=== PATIENT | female | born 1995 | race Caucasian/White ===

== ENCOUNTER 2017-05-16 17:44 | Emergency (ER) | payer OTHER ==
[~2017-05-16] VITALS: Ht 165.1 cm; Wt 136.1 kg
[~2017-05-16 17:44] MED LIST: Mupirocin22 GM TOP; Prednisone20 MG PO
== END 2017-05-16 19:58 | disposition left against medical advice (07) ==
LOC: ER 17:44
DX: Z53.21 Procedure and treatment not carried out due to patient leaving prior to being seen by health care provider (principal)
CPT/HCPCS: 76830; 76856; 99283

== ENCOUNTER 2017-06-06 13:38 | Emergency (ER) | payer OTHER ==
[~2017-06-06] VITALS: Ht 165.1 cm; Wt 117.9 kg
[2017-06-06 14:14] LABS: Source, Urine Clean Catch
[2017-06-06 14:17] LABS: Appearance, Urine Hazy (Clear); Bilirubin, Urine Neg (Neg); Blood, Urine 4+ (Neg); Color, Urine Yellow (P-Yellow); Glucose Qualitative, Urine Neg (Neg); Ketones, Urine Neg (Neg); Leukocyte Esterase, Urine 1+ (Neg); Nitrite, Urine Neg (Neg); Protein, Urine 3+ (Neg); Specific Gravity, Urine 1.015 (1.003-1.022); Urobilinogen, Urine NORM (Normal)
[2017-06-06 14:28] LABS: Bacteria Few /hpf; Red Blood Cells, Urine 25-50 /hpf (0-2); Squamous Epithelial Cells Few /hpf (Few)
[2017-06-06] MEDS ORDERED: CEPH500 PO (14:32)
== END 2017-06-06 14:43 | disposition home or self-care (01) ==
LOC: ER 13:38
PROVIDERS: Physician Assistant
DX: N39.0 Urinary tract infection, site not specified (principal); Z79.52 Long term (current) use of systemic steroids; Z79.899 Other long term (current) drug therapy; F17.200 Nicotine dependence, unspecified, uncomplicated
CPT/HCPCS: 81001; 81025; 87086; 99283

== ENCOUNTER 2020-09-10 20:03 | Emergency (ER) | payer OTHER ==
[~2020-09-10] VITALS: Ht 165.1 cm; Wt 127.0 kg
[~2020-09-10 20:03] MED LIST changes: +CEPH500 PO
== END 2020-09-10 20:31 | disposition home or self-care (01) ==
LOC: ER 20:03
DX: S61.211A Laceration without foreign body of left index finger without damage to nail, initial encounter (principal); F17.200 Nicotine dependence, unspecified, uncomplicated; Z79.52 Long term (current) use of systemic steroids; W26.0XXA Contact with knife, initial encounter; Y93.G1 Activity, food preparation and clean up
CPT/HCPCS: 99282

== ENCOUNTER 2021-12-17 02:11 | Emergency (ER) | payer OTHER ==
[~2021-12-17] VITALS: Ht 165.1 cm; Wt 108.9 kg
[2021-12-17] MEDS ORDERED: PSEUDOEPHEDRINE30 M1 PO (02:41)
== END 2021-12-17 02:54 | disposition home or self-care (01) ==
LOC: ER 02:11
DX: H92.02 Otalgia, left ear (principal); J06.9 Acute upper respiratory infection, unspecified; F17.290 Nicotine dependence, other tobacco product, uncomplicated
CPT/HCPCS: A9270

== ENCOUNTER → 2022-08-15 | Outpatient (CLI) | payer OTHER ==
[~2022-08-15] MED LIST changes: +PSEUDOEPHEDRINE30 M1 PO
[2022-08-15 14:48] LABS: Protein/Creat Ratio, Ur Random 0.1
== END | disposition home or self-care (01) ==
LOC: LAB SHORT 11:49 → LAB 11:49
PROVIDERS: Obstetrics & Gynecology
DX: R03.0 Elevated blood-pressure reading, without diagnosis of hypertension (principal)
CPT/HCPCS: 82570; 84156

== ENCOUNTER 2022-08-29 16:30 | Observation (INO) | payer OTHER ==
[~2022-08-29] VITALS: Ht 165.1 cm; Wt 146.0 kg
[2022-08-29] VITALS (15 sets, daily range): BP systolic 137–170; BP diastolic 75–90
[2022-08-29 17:21] LABS: BASOPHILS ABSOLUTE AUTO 0.04 K/mm3 (0.00-0.23); BASOPHILS PERCENT AUTO 1 % (0-2); EOSINOPHILS ABSOLUTE AUTO 0.07 K/mm3 (0.00-0.68); EOSINOPHILS PERCENT AUTO 1 % (0-6); Hemoglobin 10.7 g/dL (11.5-16.0); IMMATURE GRAN ABSOLUTE AUTO 0.06 K/mm3 (0.00-0.10); IMMATURE GRAN PERCENT AUTO 1 % (0-1); LYMPHOCYTES ABSOLUTE AUTO 1.86 K/mm3 (0.84-5.20); LYMPHOCYTES PERCENT AUTO 25 % (21-46); MONOCYTES PERCENT AUTO 7 % (4-13); Mean Corpuscular HGB Conc 31.5 g/dL (31.5-36.5); Mean Corpuscular Volume 89 fL (80-100); Mean Platelet Volume 12.5 fL (9.1-12.4); NEUTROPHILS ABSOLUTE AUTO 4.97 K/mm3 (1.96-9.15); NEUTROPHILS PERCENT AUTO 66 % (41-73); Platelet Count 163 K/mm3 (150-400); RDW Coefficient Variation 18.6 % (11.7-14.2); RDW Standard Deviation 59.7 fL (35.1-46.3); Red Blood Cell Count 3.82 M/mm3 (3.80-5.20)
[2022-08-29 17:48] LABS: Creatinine, Urine Random 90.8 mg/dL (27.00-270.00); Protein, Urine Random 12.8 mg/dL (0.0-11.9); Protein/Creat Ratio, Ur Random 0.1
[2022-08-29 19:07] LABS: Lactate Dehydrogenase (Ld),Bld 214 U/L (100-240); Uric Acid, Blood 4.2 mg/dL (2.6-6.0)
[2022-08-29 19:08] LABS: Alanine Aminotransfer (ALT/SGP 15 U/L (12-78); Albumin, Blood 2.6 g/dL (3.4-5.0); Albumin/Globulin Ratio 0.8 (0.8-1.8); Alk Phos 82 U/L (50-136); Anion Gap 6 mmol/L (6-16); Aspartate Aminotrans (AST/SGOT 10 U/L (12-37); Bilirubin, Total <0.1 mg/dL (0.1-1.0); Blood Urea Nitrogen 8 mg/dL (8-24); Bun/Creatinine Ratio 17.5 (12.0-20.0); CO2, Blood 22 mmol/L (21-32); Calcium, Blood 8.9 mg/dL (8.5-10.1); Chloride, Blood 110 mmol/L (98-108); Creatinine, Blood 0.46 mg/dL (0.40-1.00); Globulin, Blood 3.2 g/dL (2.2-4.0); Glomerular Filtration Rate 134 (60-); Glucose, Blood 88 mg/dL (70-99); Potassium, Blood 3.9 mmol/L (3.5-5.5); Sodium, Blood 138 mmol/L (136-145); Total Protein, Blood 5.8 g/dL (6.4-8.2)
[2022-08-29] MEDS ORDERED: PRENATAL 19 TA1 EAC3 PO (20:45)
[2022-08-29] MEDS ORDERED: Aspir 8181 MG (20:45)
[2022-08-30] VITALS (8 sets, daily range): BP systolic 126–161; BP diastolic 68–95
--- NOTE | 2022-08-30 07:39 | NUR ---
BP RETAKEN, PT HAD LEGS CROSSED AND CURLED AT 0738
== END 2022-08-30 13:00 | disposition home or self-care (01) ==
LOC: BC 16:30 → OBS 16:30 → BC 19:10
PROVIDERS: ADMIT Obstetrics & Gynecology
DX: O13.3 Gestational [pregnancy-induced] hypertension without significant proteinuria, third trimester (principal); Z3A.34 34 weeks gestation of pregnancy; O99.323 Drug use complicating pregnancy, third trimester; F12.90 Cannabis use, unspecified, uncomplicated; O99.343 Other mental disorders complicating pregnancy, third trimester; O99.013 Anemia complicating pregnancy, third trimester; Z87.891 Personal history of nicotine dependence; Z79.899 Other long term (current) drug therapy; Z79.82 Long term (current) use of aspirin
CPT/HCPCS: 36415; 80053; 82570; 83615; 84156; 84550; 85025; 87081; 87150; A9270

== ENCOUNTER 2022-09-15 09:28 | Inpatient (IN) | payer OTHER ==
[~2022-09-15] VITALS: Ht 165.1 cm; Wt 151.3 kg
[2022-09-15] VITALS (41 sets, daily range): BP systolic 114–177; BP diastolic 59–126
[~2022-09-15 09:28] MED LIST changes: +Aspir 8181 MG; +PRENATAL 19 TA1 EAC3 PO
[2022-09-15 09:57] LABS: BASOPHILS ABSOLUTE AUTO 0.04 K/mm3 (0.00-0.23); BASOPHILS PERCENT AUTO 1 % (0-2); EOSINOPHILS ABSOLUTE AUTO 0.11 K/mm3 (0.00-0.68); EOSINOPHILS PERCENT AUTO 1 % (0-6); Hematocrit 33.9 % (33.0-51.0); Hemoglobin 11.1 g/dL (11.5-16.0); IMMATURE GRAN ABSOLUTE AUTO 0.06 K/mm3 (0.00-0.10); IMMATURE GRAN PERCENT AUTO 1 % (0-1); LYMPHOCYTES PERCENT AUTO 20 % (21-46); MONOCYTES PERCENT AUTO 6 % (4-13); Mean Corpuscular HGB 28.9 pg (26.0-34.0); Mean Corpuscular HGB Conc 32.7 g/dL (31.5-36.5); Mean Corpuscular Volume 88 fL (80-100); Mean Platelet Volume 12.3 fL (9.1-12.4); NEUTROPHILS ABSOLUTE AUTO 5.84 K/mm3 (1.96-9.15); NEUTROPHILS PERCENT AUTO 72 % (41-73); Platelet Count 159 K/mm3 (150-400); RDW Coefficient Variation 17.5 % (11.7-14.2); RDW Standard Deviation 56.5 fL (35.1-46.3); Red Blood Cell Count 3.84 M/mm3 (3.80-5.20); White Blood Cell Count 8.15 K/mm3 (4.00-11.30)
[2022-09-15 10:40] LABS: Alanine Aminotransfer (ALT/SGP 23 U/L (12-78); Albumin, Blood 2.4 g/dL (3.4-5.0); Albumin/Globulin Ratio 0.7 (0.8-1.8); Alk Phos 99 U/L (50-136); Anion Gap 6 mmol/L (6-16); Aspartate Aminotrans (AST/SGOT 21 U/L (12-37); Bilirubin, Total <0.1 mg/dL (0.1-1.0); Blood Urea Nitrogen 13 mg/dL (8-24); Bun/Creatinine Ratio 25.3 (12.0-20.0); CO2, Blood 23 mmol/L (21-32); Calcium, Blood 8.9 mg/dL (8.5-10.1); Chloride, Blood 111 mmol/L (98-108); Creatinine, Blood 0.51 mg/dL (0.40-1.00); Globulin, Blood 3.3 g/dL (2.2-4.0); Glomerular Filtration Rate 130 (60-); Glucose, Blood 113 mg/dL (70-99); Sodium, Blood 140 mmol/L (136-145); Total Protein, Blood 5.7 g/dL (6.4-8.2)
[2022-09-15 11:08] LABS: Protein, Urine Random 146.5 mg/dL (0.0-11.9); Protein/Creat Ratio, Ur Random 0.5
[2022-09-15] MEDS ORDERED: ADALAT CC90 M1 PO (12:35)
[2022-09-15] MEDS ORDERED: PRENATAL TABLE1 EAC2 PO (12:35)
--- NOTE | 2022-09-15 14:28 | NUR ---
DR VELÁZQUEZ CALLED AND BP DISCUSSED. PLAN TO START MAGNEUM SULFATE NOW AND PLAN FOR CYTOTEC INDUCTION OF LABOR.
[2022-09-16] VITALS (50 sets, daily range): BP systolic 114–182; BP diastolic 56–101
[2022-09-17] VITALS (41 sets, daily range): BP systolic 110–153; BP diastolic 57–100
[2022-09-17 08:51] LABS: BASOPHILS ABSOLUTE AUTO 0.02 K/mm3 (0.00-0.23); BASOPHILS PERCENT AUTO 0 % (0-2); EOSINOPHILS PERCENT AUTO 0 % (0-6); Hematocrit 34.8 % (33.0-51.0); Hemoglobin 11.5 g/dL (11.5-16.0); IMMATURE GRAN ABSOLUTE AUTO 0.15 K/mm3 (0.00-0.10); IMMATURE GRAN PERCENT AUTO 1 % (0-1); LYMPHOCYTES ABSOLUTE AUTO 1.08 K/mm3 (0.84-5.20); LYMPHOCYTES PERCENT AUTO 10 % (21-46); MONOCYTES PERCENT AUTO 4 % (4-13); Mean Corpuscular HGB 28.7 pg (26.0-34.0); Mean Corpuscular Volume 87 fL (80-100); Mean Platelet Volume 12.2 fL (9.1-12.4); NEUTROPHILS ABSOLUTE AUTO 8.99 K/mm3 (1.96-9.15); NEUTROPHILS PERCENT AUTO 84 % (41-73); Platelet Count 189 K/mm3 (150-400); RDW Coefficient Variation 18.2 % (11.7-14.2); RDW Standard Deviation 57.7 fL (35.1-46.3); Red Blood Cell Count 4.01 M/mm3 (3.80-5.20); White Blood Cell Count 10.64 K/mm3 (4.00-11.30)
[2022-09-17 09:12] LABS: Albumin, Blood 2.7 g/dL (3.4-5.0); Albumin/Globulin Ratio 0.8 (0.8-1.8); Bilirubin, Total 0.2 mg/dL (0.1-1.0); Bun/Creatinine Ratio 15.7 (12.0-20.0); Calcium, Blood 7.9 mg/dL (8.5-10.1); Creatinine, Blood 0.51 mg/dL (0.40-1.00); Globulin, Blood 3.4 g/dL (2.2-4.0); Potassium, Blood 4.1 mmol/L (3.5-5.5); Total Protein, Blood 6.1 g/dL (6.4-8.2)
[2022-09-17 09:14] LABS: International Normalized Ratio 0.84; Prothrombin Time Results 8.9 Sec (9.7-11.5)
--- NOTE | 2022-09-17 10:18 | NUR ---
09/17/22 1018 Brooke Mcknight 0944 PRIMARY SECTION OF VIABLE BABY GIRL. TAKEN TO RADIANT WARMER, AND THEN TO THE NURSERY. CORD BLOOD COLLECTED
--- NOTE | 2022-09-17 17:30 | NUR ---
UP TO WHEELCHAIR TO NURSERY
--- NOTE | 2022-09-17 18:15 | NUR ---
BACK TO ROOM. TOLERATED VISITNG WELL.
[2022-09-18] VITALS (11 sets, daily range): BP systolic 105–177; BP diastolic 50–93
[2022-09-18 05:18] LABS: BASOPHILS ABSOLUTE AUTO 0.02 K/mm3 (0.00-0.23); BASOPHILS PERCENT AUTO 0 % (0-2); EOSINOPHILS ABSOLUTE AUTO 0.04 K/mm3 (0.00-0.68); EOSINOPHILS PERCENT AUTO 1 % (0-6); Hematocrit 24.6 % (33.0-51.0); IMMATURE GRAN ABSOLUTE AUTO 0.11 K/mm3 (0.00-0.10); IMMATURE GRAN PERCENT AUTO 1 % (0-1); LYMPHOCYTES ABSOLUTE AUTO 1.68 K/mm3 (0.84-5.20); LYMPHOCYTES PERCENT AUTO 21 % (21-46); MONOCYTES ABSOLUTE AUTO 0.65 K/mm3 (0.16-1.47); MONOCYTES PERCENT AUTO 8 % (4-13); Mean Corpuscular HGB 28.9 pg (26.0-34.0); Mean Corpuscular HGB Conc 32.5 g/dL (31.5-36.5); Mean Corpuscular Volume 89 fL (80-100); Mean Platelet Volume 12.4 fL (9.1-12.4); NEUTROPHILS ABSOLUTE AUTO 5.65 K/mm3 (1.96-9.15); NEUTROPHILS PERCENT AUTO 69 % (41-73); Platelet Count 156 K/mm3 (150-400); RDW Coefficient Variation 18.6 % (11.7-14.2); RDW Standard Deviation 60.9 fL (35.1-46.3); Red Blood Cell Count 2.77 M/mm3 (3.80-5.20); White Blood Cell Count 8.15 K/mm3 (4.00-11.30)
[2022-09-18 05:48] LABS: Albumin, Blood 2.3 g/dL (3.4-5.0); Albumin/Globulin Ratio 0.8 (0.8-1.8); Bilirubin, Total 0.2 mg/dL (0.1-1.0); Bun/Creatinine Ratio 22.9 (12.0-20.0); Calcium, Blood 7.2 mg/dL (8.5-10.1); Creatinine, Blood 0.57 mg/dL (0.40-1.00); Globulin, Blood 2.9 g/dL (2.2-4.0); Total Protein, Blood 5.2 g/dL (6.4-8.2)
--- NOTE | 2022-09-18 09:19 | NUR ---
PT TO WHEELCHAIR AND TO NURSERY TO FEED .
[2022-09-19 00:27] VITALS: BP 136/72
[2022-09-19 04:02] VITALS: BP 133/74
[2022-09-19 07:26] VITALS: BP 126/60
[2022-09-19] MEDS ORDERED: ACET500 PO (08:09)
[2022-09-19] MEDS ORDERED: IBUP800 PO (08:09)
[2022-09-19] MEDS ORDERED: NIFE60ER PO (08:09)
[2022-09-19] MEDS ORDERED: DOCU100 PO (08:10)
[2022-09-19] MEDS ORDERED: ENOX40I SC (08:10)
--- NOTE | 2022-09-19 09:04 | NUR ---
PT AND HER MOTHER INSTRUCTED ON LOVENOX INJECTION. PT'S MOTHER DEMONSTRATED UNDERSTANDING. HER MOM IS EXPERIENCED IN GIVING SQ INJECTIONS.
--- NOTE | 2022-09-19 11:10 | NUR ---
D/C HOME WITH BABY
== END 2022-09-19 11:10 | disposition home or self-care (01) | DRG 788 ==
LOC: BC 09:28 → OBS 09:28 → BC 11:37 → OBS 11:37 → BC 22:51
PROVIDERS: ADMIT Obstetrics & Gynecology
PROC: 10D00Z1 Extraction of Products of Conception, Low, Open Approach (ICD-10-PCS; principal; 2022-09-17 09:15)
DX: O14.14 Severe pre-eclampsia complicating childbirth (principal); O99.324 Drug use complicating childbirth; O99.02 Anemia complicating childbirth; D50.9 Iron deficiency anemia, unspecified; Z3A.36 36 weeks gestation of pregnancy; Z37.0 Single live birth; O99.344 Other mental disorders complicating childbirth; F41.9 Anxiety disorder, unspecified; O99.214 Obesity complicating childbirth; E66.01 Morbid (severe) obesity due to excess calories; F15.90 Other stimulant use, unspecified, uncomplicated; Z87.891 Personal history of nicotine dependence; Z79.899 Other long term (current) drug therapy; Z79.82 Long term (current) use of aspirin; Z71.51 Drug abuse counseling and surveillance of drug abuser
CPT/HCPCS: 36415; 59025; 80053; 82570; 84156; 85025; 85610; 85730; 86850; 86900; 86901; 86923; A9270; J0690; J0702; J1170; J1650; J1720; J1885; J2370; J2405; J2590; J2765; J2916; J3010; J3475; J7120